=== PATIENT | female | born 1945 | race Caucasian/White ===

== ENCOUNTER 2016-11-04 07:30 | Day surgery (SDC) | payer MEDICARE ==
[~2016-11-04] VITALS: Ht 152.4 cm; Wt 74.9 kg
[~2016-11-04 07:30] MED LIST: ACTOS DPS15 MG PO; AMBIEN DPS10 MG PO; ASA CHILDREN'S81 MG PO; DESYREL-DPS50 MG PO; ELIQUIS5 MG PO; GLUCAGON1 MG/ML SQ; GLUCOPHAGE1000 MG PO; GLUCOTROL DPS10 MG PO; GLUTOSE 1537.5 GM PO; HURRICAINE ONE1 EACH NS; HYDRODIURIL-DPS50 MG PO; MAALOX DPS30 ML PO; MICRO-K DPS10 MEQ PO; NITROSTAT0.4 MG SL; NORVASC DPS10 MG PO; PRAVACHOL80 MG PO; PROTONIX40 MG PO; SURFAK DPS240 MG PO; TAMBOCOR DPS50 MG PO; TENORMIN DPS50 MG PO; TYLENOL DPS325 MG PO; VASOTEC DPS10 MG PO; VASOTEC DPS5 MG PO
== END 2016-11-04 10:20 | disposition home or self-care (01) ==
LOC: RAD.S 07:30
PROC: 07DR3ZX Extraction of Iliac Bone Marrow, Percutaneous Approach, Diagnostic (ICD-10-PCS; principal; 2016-11-04)
DX: D64.9 Anemia, unspecified (principal); Z79.899 Other long term (current) drug therapy; Z88.8 Allergy status to other drugs, medicaments and biological substances; Z79.891 Long term (current) use of opiate analgesic

== ENCOUNTER 2016-12-22 15:18 | Emergency (ER) | payer MEDICARE ==
--- NOTE | 2016-12-30 10:17 | ER ---
ADMIT: 12/22/2016 RM/LOC: ER [facility] MR#: [id number] [address] [id number] [facility]ONES [address] [place] [address] Emergency Room Report SEX: F AGE: 71 : 1945 DATE: 12/22/2016 ADDENDUM: CHIEF COMPLAINT: Left leg swelling. HISTORY OF PRESENT ILLNESS: This is a 71-year-old female, who developed left leg swelling within the last few days. It has progressively worsened. She has also complained of a little bit of cough and a little bit of chest tightness, so she decided to come in the ER. COURSE IN THE EMERGENCY ROOM: EKG, troponin, CBC, BMP, and ultrasound of her left leg was done. Ultrasound is negative for DVT. Chest x-ray showed no acute disease as read by Dr. De Leon. EKG showed sinus agustín at a rate of 56 with a slightly prolonged CA interval. BMP is normal except for potassium of 3.6. CBC was normal except for hemoglobin of 10.3. I did call actually Dr. Vasquez regarding this patient. Everything was negative. He felt it was okay with the patient going home. The chest tightness, I told her could be more upper respiratory. She has had a stress test done within the last year that she said was negative for any acute findings or negative for any disease, and she just received a letter in the mail that she needs to see Cardiology. Since her troponin is normal and her EKG looked okay, Dr. Vasquez thought she was okay to go home and have her see Cardiology this week. CLINICAL IMPRESSION: 1. Left lower leg edema, negative for deep venous thrombosis. 2. Upper respiratory tract infection. 3. Chronic anemia. DISPOSITION: She felt okay going home. Will follow up with Cardiology this week. MIKAYLA Rasheed / Mickey Levy MD / albertina JOB #: [id number] CC: Mitch Mahajan MD, Attending Physician Jett Owusu MD, Family Physician
== END 2016-12-22 17:30 | disposition home or self-care (01) ==
LOC: ER 15:18
DX: R60.0 Localized edema (principal); J06.9 Acute upper respiratory infection, unspecified; E11.9 Type 2 diabetes mellitus without complications; E78.00 Pure hypercholesterolemia, unspecified; I50.9 Heart failure, unspecified; Z90.49 Acquired absence of other specified parts of digestive tract

== ENCOUNTER → 2017-02-18 | Outpatient (CLI) | payer MEDICARE | END | disposition home or self-care (01) | LOC: RAD.S 01-30 12:06 | DX: Z12.31 Encounter for screening mammogram for malignant neoplasm of breast (principal); Z13.820 Encounter for screening for osteoporosis; Z78.0 Asymptomatic menopausal state ==